=== PATIENT | female | born 1955 | race Caucasian/White ===

== ENCOUNTER → 2016-11-20 | Day surgery (SDC) | payer BC ==
[~2016-11-20] MED LIST: Lactated Ringers 1,000 ML IV SCH; Propofol 200 MG/20 ML SDV IV ONE
[2016-11-20 09:49] VITALS: BP 150/89
--- NOTE | 2016-11-20 10:09 | OR ---
DATE OF OPERATION: 11/20/2016 PREOPERATIVE DIAGNOSIS: 1. SCREENING COLONOSCOPY. 2. FAMILY HISTORY OF COLON CANCER. POSTOPERATIVE DIAGNOSIS: 1. SCREENING COLONOSCOPY. 2. FAMILY HISTORY OF COLON CANCER. SURGEON: Wesley Webber MD PROCEDURE: FULL-LENGTH COLONOSCOPY. ANESTHESIA: CONTENT PUBLISHER due to severe anxiety. COMPLICATIONS: None. SPECIMEN: None. FINDINGS: Normal full-length colonoscopy. RECOMMENDATIONS: Follow up colonoscopy every 5 years. INDICATIONS: The patient had a prior colonoscopy 7 years ago. Her brother was just diagnosed with colon cancer. She was sent by [facility] for exam. DESCRIPTION OF PROCEDURE: The patient was prepped and draped, placed in the left lateral decubitus position. A lubricated Olympus colonoscope was inserted and easily advanced to the cecum. Direct visualization of the ileocecal valve and appendiceal orifice was accomplished. The bowel prep was excellent. Upon withdrawal of the scope throughout the entire length of the colon, I found no signs of any polyps, masses, ulcerations, or bleeding sites. No vascular abnormalities or signs of colitis. There were no diverticula. The rectal vault was unremarkable. Retroflexion of scope in the rectum showed no anal lesions. Air was then suctioned and scope was removed without complication. MALOU/TENA /[id number]
== END ==
LOC: CC.SDS 07:52
PROVIDERS: ATTEND Family Medicine
DX: Z12.11 Encounter for screening for malignant neoplasm of colon (principal); F41.9 Anxiety disorder, unspecified; K21.9 Gastro-esophageal reflux disease without esophagitis; E78.5 Hyperlipidemia, unspecified; Z79.899 Other long term (current) drug therapy; Z90.49 Acquired absence of other specified parts of digestive tract; Z98.890 Other specified postprocedural states
CPT/HCPCS: 45378; J2704; J7120

== ENCOUNTER → 2021-12-12 | Day surgery (SDC) | payer MEDICARE, BC ==
[~2021-12-12] MED LIST changes: +Flumazenil 0.1 MG/ML 10 ML MDV ONE; +Ketamine 200 MG/20 ML MDV ONE; +Lactated Ringers 1,000 ML IV ONE; -Lactated Ringers 1,000 ML IV SCH; +Midazolam 1 MG/ML 2 ML SDV ONE; -Propofol 200 MG/20 ML SDV IV ONE; +Propofol 200 MG/20 ML SDV ONE; +fentaNYL 50 MCG/ML SDV ONE
== END ==
LOC: CC.SDS 06:00
PROVIDERS: ATTEND Family Medicine
DX: Z12.11 Encounter for screening for malignant neoplasm of colon (principal); F41.9 Anxiety disorder, unspecified; K21.9 Gastro-esophageal reflux disease without esophagitis; E78.5 Hyperlipidemia, unspecified; M81.0 Age-related osteoporosis without current pathological fracture; G47.00 Insomnia, unspecified; N95.2 Postmenopausal atrophic vaginitis; Z79.899 Other long term (current) drug therapy; Z98.890 Other specified postprocedural states; Z90.49 Acquired absence of other specified parts of digestive tract; Z80.0 Family history of malignant neoplasm of digestive organs
CPT/HCPCS: G0105; J2250; J2704; J3010; J7120; 00812; 01810

== ENCOUNTER 2023-12-24 08:17 | Day surgery (SDC) | payer MEDICARE, BC ==
[2023-12-24] MEDS ORDERED: fentaNYL 50 MCG/ML SDV ONE (08:45)
[2023-12-24] MEDS ORDERED: Propofol 200 MG/20 ML SDV ONE (08:45)
[2023-12-24] MEDS ORDERED: Lidocaine 2% 20 ML MDV ONE (08:45)
[2023-12-24] MEDS ORDERED: Midazolam 1 MG/ML 2 ML SDV ONE (08:45)
[2023-12-24 10:00] VITALS: BP 108/58; PULSE 70
== END 2023-12-24 09:55 | disposition home or self-care (01) ==
LOC: CC.SDS 08:17
PROVIDERS: ATTEND Family Medicine
DX: K29.50 Unspecified chronic gastritis without bleeding (principal); K31.A0 Gastric intestinal metaplasia, unspecified; K21.9 Gastro-esophageal reflux disease without esophagitis; K44.9 Diaphragmatic hernia without obstruction or gangrene; E78.00 Pure hypercholesterolemia, unspecified; I10 Essential (primary) hypertension
CPT/HCPCS: 00731; 87081; 88305; J2250; J2704; J3010; J3490